=== PATIENT | female | born 1980 | race Asian ===

== ENCOUNTER 2017-11-16 01:45 | Inpatient (IN) | payer SELFPAY ==
[~2017-11-16] VITALS: Ht 165.1 cm; Wt 69.9 kg
[2017-11-16] MEDS ORDERED: METHYLERGONOVINE 0.2 MG/ML AMP IM PRN ×2 (02:15→10:05)
[2017-11-16] MEDS ORDERED: PROMETHAZINE 25 MG/ML VIAL IVP PRN (02:15)
[2017-11-16] MEDS ORDERED: NALBUPHINE HYDROCHLORIDE 10 MG/ML VIAL IVP PRN (02:15)
[2017-11-16] MEDS ORDERED: CARBOPROST 250 MCG/ML AMP IM PRN (02:15)
[2017-11-16] MEDS ORDERED: OXYTOCIN 10 UNITS/ML VIAL IM SCH (02:15)
[2017-11-16] MEDS ORDERED: OXYTOCIN 20 UNITS in LACTATED RINGERS 1,000 ML IV SCH (02:20)
[2017-11-16 02:39] LABS: APPEARANCE,URINE CLEAR (CLEAR); BILIRUBIN,URINE NEGATIVE (NEGATIVE); BLOOD, URINE TRACE-I (NEGATIVE); COLOR,URINE YELLOW (YELLOW); LEUKOCYTE ESTERASE ,URINE 1+ (NEGATIVE); NITRITE, URINE NEGATIVE (NEGATIVE); PH,URINE 6.5 (5.0-9.0); UGLUCOSE NEGATIVE (NEGATIVE)
[2017-11-16] MEDS: LACTATED RINGERS 1,000 ML IV SCH ×2 (02:46→04:38)
[2017-11-16] MEDS ORDERED: NALBUPHINE HYDROCHLORIDE 10 MG/ML VIAL ONE (02:46)
[2017-11-16] MEDS ORDERED: PROMETHAZINE 25 MG/ML VIAL ONE (02:47)
[2017-11-16 02:55] LABS: ALBUMIN 2.8 g/dL (3.4-5.0); ANION GAP 16.7 (8-16); CREATININE 0.6 mg/dL (0.6-1.3); POTASSIUM 3.7 mmol/L (3.5-5.1); TOTAL BILIRUBIN 0.3 mg/dL (0.0-1.0)
[2017-11-16] MEDS ORDERED: PREN-546 PO (02:57)
[2017-11-16 03:23] LABS: RBC,URINE 3-10 (FEW) /HPF (0-5)
[2017-11-16 03:44] LABS: HEMATOCRIT 35.4 % (36-48); HEMOGLOBIN 12.1 g/dL (12.0-16.0); MEAN CORPUSCULAR VOLUME 96 fL (80-94); RED BLOOD CELL COUNT(AUTO) 3.68 MIL/uL (4.20-5.40); WHITE BLOOD COUNT (AUTO) 8.4 K/uL (4.8-10.8)
[2017-11-16 03:45] LABS: LYMPHOCYTES % (AUTO) 28.9 % (20.5-51.1); MEAN CORPUSCULAR HEMOGLOBIN 33 pg (27-31); MEAN CORPUSCULAR HGB CONC 34 g/dL (33-37); MONOCYTES % (AUTO) 6.4 % (1.7-9.3); NEUTROPHILS % (AUTO) 63.7 % (42.2-75.2); PLATELET COUNT (AUTO) 204 K/uL (140-450); RED CELL DISTRIBUTION WIDTH 13.9 % (11.6-13.7)
[2017-11-16 03:46] LABS: BASOPHILS % (AUTO) 0.3 % (0.0-2.0); EOSINOPHILS # (AUTO) 0.1 K/uL (0-0.4); EOSINOPHILS % (AUTO) 0.7 % (0.0-4.0); LYMPHOCYTES # (AUTO) 2.4 K/uL (2.5-16.5); MONOCYTES # (AUTO) 0.5 K/uL (0.8-1.0); NEUTROPHILS # (AUTO) 5.4 K/uL (1.8-7.7)
[2017-11-16] MEDS ORDERED: OXYTOCIN 20 UNITS/LR PREMIX 1,000 ML IV ONE (04:09)
[2017-11-16] MEDS ORDERED: BUPIVACAINE 0.125%/NS PREMIX 250 ML ONE (04:10)
[2017-11-16] MEDS ORDERED: OXYTOCIN 10 UNITS/ML VIAL ONE (06:21)
[2017-11-16] MEDS ORDERED: METHYLERGONOVINE 0.2 MG/ML AMP ONE (06:52)
--- NOTE | 2017-11-16 09:02 | NUR ---
PATIENT HAS BEEN SCREENED AND CATEGORIZED LOW NUTRITION RISK. PATIENT WILL BE SEEN WITHIN 7 DAYS OF ADMISSION. 11/22/[address]
[2017-11-16] MEDS ORDERED: oxyCODONE/APAP 5/325 MG 1 TAB TAB PO PRN ×2 (09:50→10:05)
[2017-11-16] MEDS ORDERED: HYDROcodone/APAP 5/325 MG 1 TAB TAB PO PRN ×2 (09:50→10:05)
[2017-11-16] MEDS ORDERED: OXYTOCIN 10 UNITS/ML VIAL IM PRN ×2 (09:50→10:05)
[2017-11-16] MEDS ORDERED: MEASLES, MUMPS, AND RUBELLA 1 VIAL SQVAC PRN (10:05)
[2017-11-16] MEDS ORDERED: BENZOCAINE/MENTHOL 20%-0.5% 60 GM CAN TP PRN (10:05)
[2017-11-16] MEDS ORDERED: TEMAZEPAM 15 MG CAP PO PRN (10:05)
[2017-11-16] MEDS: IBUPROFEN 800 MG TAB PO PRN (19:50)
[2017-11-16] MEDS ORDERED: DOCUSATE SOD/SENNA 50/8.6 MG 1 TAB PO SCH (21:00)
[2017-11-16] MEDS ORDERED: SENNA 8.6 MG TAB PO SCH (21:00)
[2017-11-17] MEDS: IBUPROFEN 800 MG TAB PO PRN ×2 (05:18→22:22)
[2017-11-17 06:46] LABS: HEMOGLOBIN 10.1 g/dL (12.0-16.0)
[2017-11-17] MEDS ORDERED: SHARK OIL/PHENYLEPHRINE 60 GM TUBE TP PRN (21:40)
[2017-11-18] MEDS ORDERED: IBUP-1842 PO (09:46)
[2017-11-18 13:05] LABS: RAPID PLASMA REAGIN NON-REACTIVE (Non Reactiv)
== END 2017-11-18 12:35 | disposition home or self-care (01) | DRG 774 ==
LOC: MLD 01:45 → MFCC 09:40
PROVIDERS: ADMIT Obstetrics & Gynecology; ATTEND Obstetrics & Gynecology
PROC: 10E0XZZ Delivery of Products of Conception, External Approach (ICD-10-PCS; principal; 2017-11-16)
PROC: 0KQM0ZZ Repair Perineum Muscle, Open Approach (ICD-10-PCS; 2017-11-16)
PROC: 3E0R3BZ Introduction of Anesthetic Agent into Spinal Canal, Percutaneous Approach (ICD-10-PCS; 2017-11-16)
PROC: 00HU33Z Insertion of Infusion Device into Spinal Canal, Percutaneous Approach (ICD-10-PCS; 2017-11-16)
DX: O45.93 Premature separation of placenta, unspecified, third trimester (principal); O70.1 Second degree perineal laceration during delivery; Z37.0 Single live birth; Z3A.38 38 weeks gestation of pregnancy; O89.4 Spinal and epidural anesthesia-induced headache during the puerperium; Z28.21 Immunization not carried out because of patient refusal
CPT/HCPCS: 36415; 51702; 59409; 80053; 81001; 85018; 85025; 86592; 86886; 86900; 86901; 87086; J2210; J2300; J2550; J2590; J3490; J7120